=== PATIENT | male | born 1995 | race Caucasian/White ===

== ENCOUNTER 2018-02-03 16:39 | Emergency (ER) | payer BC, OTHER ==
[~2018-02-03] VITALS: Ht 185.4 cm; Wt 95.0 kg
[2018-02-03 16:44] VITALS: TEMP 36.7; Ht 185.4 cm; Wt 95.0 kg
[2018-02-03] MEDS ORDERED: IBUPROFEN 800 MG TAB PO STA (16:58)
--- NOTE | 2018-02-03 17:17 | DIAGNOSTIC IMAGING REPORT ---
R TIBIA/FIBULA 2 VIEWS ROUTINE CLINICAL HISTORY: right dital tib/fib pain trauma. Pain. COMPARISON: None. DISCUSSION: Oblique fracture distal fibula. No significant bony distraction area more proximal aspects of the tibia and fibular unremarkable. There is no evidence for soft tissue swelling. IMPRESSION: Oblique fracture distal fibula. The above report was generated using voice recognition software. It may contain grammatical, syntax or spelling errors. Electronically signed by: Fredy Murrieta M.D. 02/03/2018 5:16 PM Dictated Date/Time: 02/03/2018 5:15 PM
--- NOTE | 2018-02-03 17:19 | DIAGNOSTIC IMAGING REPORT ---
R ANKLE MIN 3 VIEWS ROUTINE CLINICAL HISTORY: fall trauma. Pain. COMPARISON: None. FINDINGS: Oblique fracture distal fibula. This is considered essentially nondisplaced. Potential tiny avulsion history of the posterior malleolus.. Subtalar joint is intact. Moderate soft tissue edema. IMPRESSION: 1. Oblique fracture distal fibula. 2. Tiny avulsion posterior malleolus. 3. Soft tissue edema. The above report was generated using voice recognition software. It may contain grammatical, syntax or spelling errors. Electronically signed by: Fredy Murrieta M.D. 02/03/2018 5:17 PM Dictated Date/Time: 02/03/2018 5:16 PM
[2018-02-03] MEDS ORDERED: CEPH500C2 PO (17:40)
[2018-02-03] MEDS ORDERED: CEPHALEXIN MONOHYDRATE 250 MG CAP PO STA (17:40)
--- NOTE | 2018-02-03 17:45 | EMERGENCY ROOM VISIT NOTE ---
ED Visit Note First contact with patient: 16:52 CHIEF COMPLAINT: Ankle pain HISTORY OF PRESENT ILLNESS: This 22-year-old male patient presents to the emergency department approximately 30 minutes after sustaining an injury to the right ankle and foot with a twisting, inversion motion when he fell off of a skateboard. He states he did feel a popping sensation when the ankle rolled. The patient complains of minimal occasional pain along the outside of the ankle. The patient denies pain of the foot. The patient rates the pain as sharp and 6/10. The patient is not able to bear weight on the foot. Constant pain, worse with movement, weight bearing, and the dependent position. No knee pain, the patient is able to move their toes. No numbness or weakness of the foot, no laceration. The patient has not had a previous fracture to this ankle. The patient has taken nothing for the pain. The patient denies any other injury. REVIEW OF SYSTEMS: A 6 system review of systems was completed with positives and pertinent negatives listed in the HPI. ALLERGIES: None MEDICATIONS: None PMH: None SOCIAL HISTORY: Patient lives locally. He is a [employer] student. He denies drug, alcohol, tobacco use. PHYSICAL EXAM: Vital Signs: Reviewed Nurse's notes, vital signs stable. GENERAL : This is a 22-year-old male, no acute distress, but appears in pain, well- developed, well-nourished. MENTAL STATUS: Alert, oriented to person place and time, and cooperative. SKIN: Tiny superficial abrasion over the anterior aspect of the right ankle. There is no active bleeding or drainage. MUSCULOSKELETAL: The right ankle is swollen and tender over the lateral malleolus and distal fibula and tibia, but the skin is intact and there is no ligamentous instability. There is no fifth metatarsal tenderness. There is no tenderness over the rest of the foot. There is no calf or tibia/fibular tenderness. There is no visual deformity. The foot and toes are warm and well- perfused. Dorsalis pedis pulse 2+. Sensation to pain and light touch is intact. Capillary refill less than 2 seconds. RADIOLOGY: R TIBIA/FIBULA 2 VIEWS ROUTINE CLINICAL HISTORY: right dital tib/fib pain trauma. Pain. COMPARISON: None. DISCUSSION: Oblique fracture distal fibula. No significant bony distraction area more proximal aspects of the tibia and fibular unremarkable. There is no evidence for soft tissue swelling. IMPRESSION: Oblique fracture distal fibula. The above report was generated using voice recognition software. It may contain grammatical, syntax or spelling errors. Electronically signed by: Fredy Murrieta M.D. 02/03/2018 5:16 PM Dictated Date/Time: 02/03/2018 5:15 PM R ANKLE MIN 3 VIEWS ROUTINE CLINICAL HISTORY: fall trauma. Pain. COMPARISON: None. FINDINGS: Oblique fracture distal fibula. This is considered essentially nondisplaced. Potential tiny avulsion history of the posterior malleolus.. Subtalar joint is intact. Moderate soft tissue edema. IMPRESSION: 1. Oblique fracture distal fibula. 2. Tiny avulsion posterior malleolus. 3. Soft tissue edema. The above report was generated using voice recognition software. It may contain grammatical, syntax or spelling errors. Electronically signed by: Fredy Murrieta M.D. 02/03/2018 5:17 PM Dictated Date/Time: 02/03/2018 5:16 PM EMERGENCY DEPARTMENT COURSE: I examined the patient. He was given ibuprofen for pain. X-rays of the right ankle and tibia/fibula were reviewed by myself and read by radiology and reveal an oblique fracture of the distal fibula with a tiny avulsion of the posterior malleolus. The abrasion was covered with Xeroform bandage prior to splinting. An Ortho-Glass posterior leg with a stirrup splint was applied to the ankle under my direction and the position was satisfactory. Neurovascular status was rechecked and intact. The patient was instructed on the use of crutches. He was encouraged to follow-up soon with orthopedics and I discussed the importance of follow-up with him. Patient verbalized understanding. He will be treated with antibiotics due to the superficial abrasion over the ankle. He was given his first dose of Keflex and a prescription. The patient was agreeable and verbalized understanding. The patient was given discs of his x-rays to take home with him. The patient was discharged home in good condition. I attest that I have personally reviewed the patient's current medication list. Patient was found to have normal blood pressure on screening and does not require follow-up. Etiologies such as soft tissue injury, fracture, dislocation, neurovascular compromise, compartment syndrome, as well as others were entertained. DIAGNOSIS: Distal right fibula fracture, superficial abrasion The chart was completed utilizing [employer] Speech voice recognition software. Grammatical errors, random word insertions, pronoun errors, and incomplete sentences are an occasional consequence of this system due to software limitations, ambient noise, and hardware issues. Any formal questions or concerns about the content, text, or information contained within the body of this dictation should be directly addressed to the provider for clarification. Current/Historical Medications Scheduled Cephalexin Monohydrate (Keflex), 500 MG PO QID Scheduled PRN Oxycodone Ir (Roxicodone Ir), 1-2 TAB PO Q4H PRN for Pain Vital Signs Date Time Temp Pulse Resp B/P (MAP) Pulse Ox O2 Delivery O2 Flow Rate FiO2 02/03/18 18:22 87 12 107/66 98 02/03/18 16:44 36.7 90 18 108/76 98 Room Air Medications Administered Medications (Trade) Dose Ordered Sig/Tamy Route Start Time Stop Time Status Last Admin Dose Admin Ibuprofen (Motrin Tab) 800 mg NOW STAT PO 02/03/18 16:58 02/03/18 16:59 DC 02/03/18 17:20 800 MG Cephalexin Monohydrate (Keflex Cap) 500 mg NOW STAT PO 02/03/18 17:40 02/03/18 17:41 DC 02/03/18 18:10 500 MG Departure Information Impression Primary Impression: Fracture of distal end of right fibula Additional Impression: Abrasion of right ankle Dispostion Home / Self-Care Condition GOOD Prescriptions Oxycodone Ir (Roxicodone Ir) 5 Mg Tab 1-2 TAB PO Q4H Y for Pain, #15 TAB For Initial Treatment Prov: Lauren Reyna PA-C 02/03/18 Cephalexin Monohydrate (KEFLEX) 500 Mg Cap 500 MG PO QID for 7 Days, #28 CAP Prov: Lauren Reyna PA-C 02/03/18 Referrals [facility] (PCP) Tay Puentes MD [facility] Patient Instructions ED Fx Ankle General, ED Fx Ankle Lateral Malleolus, [facility] Additional Instructions You were seen in the ED today for right ankle pain. There is an oblique fracture of the distal fibula with possible small chip fracture of the posterior malleolus. You did have a superficial abrasion of the anterior ankle, and while this is not directly over the fractures, I would like to start you on antibiotics to prevent infection. Cephalexin(Keflex) 500mg: Take one pill four times daily for 7 days for your skin infection. All antibiotics can cause diarrhea. If this occurs and you feel worse or it does not resolve in 1-2 days follow up with your doctor or return to the Emergency Department as this could be signs of serious underlying problems. Any medication can cause an allergic reaction, stop the pills immediately and return to the ER for rash, hives, breathing difficulties, or swelling. Oxycodone (OxyIR) 5mg: Take 1-2 pills every four hours as needed for breakthrough pain. Avoid alcohol, operating machinery or dangerous equipment, working on ladders or roofs, DRIVING, or situations where being under the influence may be dangerous. It is recommended to use an icax-ddt-wwscuoy stool softener such as Colace, 100mg twice daily while taking this medication to avoid constipation. Ibuprofen(Motrin, Advil) may be used for fever or pain. Use 600mg every six hours as needed. Take with food. Avoid using more than 2400mg in a 24 hour period. Do not use 2400mg per day for more than three consecutive days without physician direction. Prolonged inappropriate use can lead to stomach upset or ulcers. (AND/OR) Acetaminophen(Tylenol) may be used for fever or pain. Use 1000mg every six hours as needed. Avoid using more than 3000mg in a 24 hour period. Ice compresses for 20 minutes at a time four times daily for 2-3 days. Use the crutches as instructed. Avoid ALL weight bearing until cleared by orthopedics. Rest and elevate your injury. Do not get the splint wet. If your splint feels excessively tight, you have worsening pain, develop numbness or tingling, or your digits appear blue, loosen the aly wrap. Then reapply the aly wrap gently without removing the splint. If your symptoms are not quickly relieved return to the ER for re- evaluation. Return to the ER immediately for any numbness, tingling, severe pain, extreme swelling in the extremity or as needed. Call [facility], [phone], or your local orthopedic surgeon at home TOMORROW to arrange follow up for your injury. You may consider seeking care at the walk-in clinic at [facility]. Follow-up with your primary care physician/[facility] in 2 to 3 days for a recheck of your current condition. Problem Qualifiers Primary Impression: Fracture of distal end of right fibula Encounter type: initial encounter Fracture type: closed Fracture morphology : other fracture Qualified Codes: S82.831A - Other fracture of upper and lower end of right fibula, initial encounter for closed fracture Additional Impression: Abrasion of right ankle Encounter type: initial encounter Qualified Codes: S90.511A - Abrasion, right ankle, initial encounter
[2018-02-03] MEDS ORDERED: OXYC1TAB3 PO (18:17)
[2018-02-03 18:22] VITALS: BP 107/66; PULSE 87; O2SAT 98
== END 2018-02-03 18:25 | disposition home or self-care (01) ==
LOC: C.EDB 16:41 → C.EDD 18:25
DX: S82.831A Other fracture of upper and lower end of right fibula, initial encounter for closed fracture (principal); S90.511A Abrasion, right ankle, initial encounter; V00.131A Fall from skateboard, initial encounter; Y92.89 Other specified places as the place of occurrence of the external cause